=== PATIENT | male | born 1955 | race Caucasian/White ===

== ENCOUNTER 2019-03-19 08:04 | Emergency (ER) | payer MEDICARE ==
--- NOTE | 2019-03-19 08:16 | ED Physician Documentation ---
History of Present Illness - Stated complaint Stated Complaint: CHEST PAIN - Chief complaint Chief Complaint: Cardiac - History obtained from History obtained from: Patient - Additonal information Additional information: Patient is a previously healthy 63-year-old male presenting with left-sided chest discomfort that has been exacerbated since yesterday evening, but has been present over the past few days. Patient states that he has been experiencing a productive cough for some days which has caused mild chest discomfort. Patient denies fever or chills associated with his cough. Patient denies any radiation of his chest pain, as well as any lightheadedness, syncope, nausea, GERD symptoms, or vomiting. Patient denies abdominal pain, urinary changes, stool changes, as well as any leg swelling or recent travel. Patient does describe pain mostly with deep breathing. No anticoagulation, but patient took full dose aspirin prior to arrival. No other improving or worsening factors noted. Review of Systems Constitutional: denies: Fever Cardiac: reports: Chest pain / pressure Respiratory: reports: Dyspnea, Cough GI: denies: Abdominal Pain Musculoskeletal: denies: Extremity swelling PD PAST MEDICAL HISTORY - Past Medical History Past Medical History: No - Past Surgical History Ortho: Other (Knee) - Present Medications Home Medications: Ambulatory Orders Medication Instructions Recorded Confirmed No Known Home Medications 03/19/19 03/19/19 - Allergies Allergies/Adverse Reactions: Allergies Allergy/AdvReac Type Severity Reaction Status Date / Time codeine Allergy Emesis Verified 03/19/19 08:13 PD ED PE NORMAL - Vitals Vital signs reviewed: Yes - General General: Alert and oriented X 3, No acute distress, Well developed/nourished - HEENT HEENT: Atraumatic, Moist mucous membranes - Cardiac Cardiac: RRR, No murmur, Other (Not able to reproduce pain with palpation) - Abdomen Abdomen: Soft, Non tender, Non distended - Derm Derm: Normal color, Warm and dry, No rash - Extremities Extremities: No deformity, No tenderness to palpate, No edema, No calf tenderness / cord - Neuro Neuro: Alert and oriented X 3, No motor deficit, No sensory deficit - Psych Psych: Normal mood, Normal affect Results - Vitals Vitals: Vital Signs - 24 hr 03/19/19 03/19/19 03/19/19 08:08 08:13 09:13 Temperature 36.6 C Heart Rate 74 84 68 Respiratory 23 16 14 Rate Blood Pressure 154/91 H 154/91 H 145/91 H O2 Saturation 98 100 100 03/19/19 03/19/19 03/19/19 09:30 10:00 10:30 Temperature Heart Rate 74 66 69 Respiratory 18 19 18 Rate Blood Pressure 148/86 H 141/83 H 131/87 H O2 Saturation 97 97 99 03/19/19 10:53 Temperature Heart Rate 67 Respiratory 17 Rate Blood Pressure 133/86 H O2 Saturation 97 Oxygen O2 Source Room air - EKG (time done) 0804 Rate: Rate (enter#) (74) Rhythm: NSR QRS: LVH - Labs Labs: Laboratory Tests 03/19/19 03/19/19 03/19/19 08:14 08:14 08:14 WBC 10.3 RBC 4.79 Hgb 14.1 Hct 42.1 MCV 87.9 MCH 29.5 MCHC 33.5 RDW 13.4 Plt Count 258 MPV 7.2 L Neut # (Auto) 6.6 Lymph # (Auto) 2.0 [place] # (Auto) 1.5 H Eos # (Auto) 0.3 Baso # (Auto) 0.1 Absolute Nucleated RBC 0.00 Nucleated RBC % 0.0 PT INR APTT Sodium 138 Potassium 4.2 Chloride 102 Carbon Dioxide 25 Anion Gap 11.0 BUN 14 Creatinine 1.1 Estimated GFR (MDRD) 67 L Glucose 120 H Calcium 9.3 Total Bilirubin 0.9 AST 25 ALT 35 Alkaline Phosphatase 54 Troponin I < 0.04 B-Natriuretic Peptide Total Protein 7.9 Albumin 4.3 Globulin 3.6 Albumin/Globulin Ratio 1.2 Lipase 31 03/19/19 03/19/19 08:14 08:14 WBC RBC Hgb Hct MCV MCH MCHC RDW Plt Count MPV Neut # (Auto) Lymph # (Auto) [place] # (Auto) Eos # (Auto) Baso # (Auto) Absolute Nucleated RBC Nucleated RBC % PT 12.6 INR 1.1 APTT 28.2 Sodium Potassium Chloride Carbon Dioxide Anion Gap BUN Creatinine Estimated GFR (MDRD) Glucose Calcium Total Bilirubin AST ALT Alkaline Phosphatase Troponin I B-Natriuretic Peptide 15 Total Protein Albumin Globulin Albumin/Globulin Ratio Lipase PD MEDICAL DECISION MAKING - ED course Complexity details: reviewed results, re-evaluated patient, considered differential, d/w patient, d/w family ED course: Patient presenting with productive cough and chest discomfort over the past several days. Feel this could be related to pneumonia, bronchitis, viral illness, or other chest wall/musculoskeletal inflammation. Also considering ACS, myocardial infarction, unstable angina, AAA, dissection, or arrhythmia. EKG does not show evidence of acute changes.Also concerning for PE given pleuritic nature of discomfort and discussed possibly getting CT chest if needed. Patient to receive IV fluids and fentanyl as he already took full dose aspirin prior to arrival. Screening lab work and chest x-ray ordered.Screening lab work, including cardiac enzymes, returned unremarkable. Do not feel patient requires repeat troponin at this time given duration of symptoms. Unfortunately, delay in radiology read of chest x-ray, but upon my review, do not see obvious pneumonia or other complication. At this time, feel appropriate to obtain CT chest to further rule out PE.CT did not find evidence of PE or other complication. Upon reevaluation, patient noted improvement of symptoms and had lengthy discussion with patient and his wifeAbout results and rec ommendations including establishing primary care physician locally, cardiology referral, and need for further cardiac work-up including likely echocardiogram, stress test, or possible catheterization. Also discussed other supportive cares and strict return precautions. Both voiced understanding and are comfortable with discharge plan. Departure - Departure Disposition: 01 Home, Self Care Clinical Impression: Chest pain Qualifiers: Chest pain type: unspecified Qualified Code(s): R07.9 - Chest pain, unspecified Condition: Good Instructions: ED Chest Pain Atypical Unkn Cause Follow-Up: your,doctor [Other] - Within 3 Days Comments: Recommend starting daily baby aspirin 81 mg. Recommend avoidance of strenuous exercise until appropriate follow-up with primary care physician and possibly cardiology. May continue daily activities as needed. Recommend establishing primary care follow-up in the next 1 to 2 days for further evaluation. Will lik becky also require cardiology evaluation such as with echocardiogram, stress test, or cardiac catheterization. Please return to ED immediately if experience return of chest pain, other symptoms, or have other concerns.
[2019-03-19 08:26] LABS: BASOPHILS # (AUTO) 0.1 10^3/uL (0.0-0.1); BASOPHILS % (AUTO) 0.6 %; EOSINOPHILS # (AUTO) 0.3 10^3/uL (0.0-0.7); EOSINOPHILS % (AUTO) 2.6 %; HGB - HEMOGLOBIN 14.1 g/dL (14.0-18.0); LYMPHOCYTES % (AUTO) 19.2 %; MEAN CORPUSCULAR HEMOGLOBIN 29.5 pg (27.0-31.0); MEAN CORPUSCULAR HGB CONC 33.5 g/dL (32.0-36.0); MEAN CORPUSCULAR VOLUME 87.9 fL (80.0-94.0); MEAN PLATELET VOLUME 7.2 fL (7.4-11.4); MONOCYTES # (AUTO) 1.5 10^3/uL (0.0-1.0); MONOCYTES % (AUTO) 14.1 %; NEUTROPHILS # (AUTO) 6.6 10^3/uL (1.5-6.6); NEUTROPHILS % (AUTO) 63.5 %; PLT - PLATELET COUNT 258 10^3/uL (130-450); RED BLOOD COUNT 4.79 10^6/uL (4.70-6.10); RED CELL DISTRIBUTION WIDTH 13.4 % (12.0-15.0); WHITE BLOOD COUNT 10.3 x10^3/uL (4.8-10.8)
[2019-03-19] MEDS: fentaNYL 100 MCG/2 ML VIAL IVP STA (08:31)
[2019-03-19] MEDS: SODIUM CHLORIDE 0.9% 1,000 ML IV ONE (08:31)
[2019-03-19 08:38] LABS: ALBUMIN 4.3 g/dL (3.2-5.5); ALBUMIN/GLOBULIN RATIO 1.2 (1.0-2.2); BILIRUBIN,TOTAL 0.9 mg/dL (0.2-1.0); CALCIUM 9.3 mg/dL (8.5-10.3); CREATININE 1.1 mg/dL (0.6-1.2); TOTAL PROTEIN 7.9 g/dL (6.7-8.2)
[2019-03-19 08:39] LABS: INR 1.1 (0.8-1.2); PT - PROTHROMBIN TIME 12.6 secs (9.9-12.6)
[2019-03-19 08:47] LABS: PARTIAL THROMBOPLASTIN TIME 28.2 secs (24.9-33.3)
--- NOTE | 2019-03-19 09:32 | XRAY Report ---
Reason: cough Procedure Date: 03/19/2019 Accession Number: [id number] / [id number] Procedure: XR - Chest 2 View X-Ray CPT Code: 15924 FULL RESULT: EXAM: CHEST RADIOGRAPHY EXAM DATE: 03/19/2019 09:03 AM. CLINICAL HISTORY: Cough. Chest pain. COMPARISON: None. TECHNIQUE: 2 views. FINDINGS: Lungs/Pleura: No focal opacities evident. No interstitial abnormality. No pleural effusion. No pneumothorax. Normal volumes. Mediastinum: Heart and mediastinal contours are unremarkable. Other: None. IMPRESSION: Normal 2-view chest radiography. [facility]
[2019-03-19] MEDS ORDERED: IOVERSOL 320 100 ML VIAL IVP ONE (10:07)
--- NOTE | 2019-03-19 10:41 | CT Report ---
Reason: pleuritic chest pain, concern for PE Procedure Date: 03/19/2019 Accession Number: [id number] / [id number] Procedure: CT - ANGIO CHEST W/WO CPT Code: FULL RESULT: EXAM: CT ANGIOGRAM CHEST EXAM DATE: 03/19/2019 10:19 AM. CLINICAL HISTORY: Pleuritic chest pain, concern for a pulmonary embolus. COMPARISON: None. TECHNIQUE: Routine helical imaging was performed through the chest in the pulmonary arterial phase. IV Contrast: 54 mL Optiray 320. Reconstructions: Coronal 3-D MIP reconstructions.Sagittal and coronal. In accordance with CT protocol optimization, one or more of the following dose reduction techniques were utilized for this exam: automated exposure control, adjustment of mA and/or KV based on patient size, or use of iterative reconstructive technique. FINDINGS: Pulmonary Arteries: Diagnostic quality: Adequate through the proximal segmental arteries. No evidence for acute or chronic pulmonary emboli. RV/LV is within normal limits. There is no interventricular septal bowing. There is no reflux of contrast material in the IVC. Lungs/Pleura: Evaluation of the lungs is limited by motion artifact and technique tailored towards angiogram. In this setting, there is minimal dependent consolidation greater at the right lung base, and there is apparent pulmonary edema which is likely exacerbated by motion. There is no significant pleural effusion or pneumothorax. Mediastinum: Normal. No cardiac enlargement or adenopathy. Thoracic Aorta: Unremarkable. Upper Abdomen: Unremarkable. Other: None. IMPRESSION: No pulmonary embolism. Minimal dependent right lung base consolidation and apparent pulmonary edema, likely exacerbated by limited technique and motion artifact. [facility]
[2019-03-19 10:59] VITALS: BP 133/86
[2019-03-19] MEDS: IOVERSOL 320 100 ML VIAL IVP ONE (14:30)
== END 2019-03-19 11:11 | disposition home or self-care (01) ==
LOC: ED 08:04
DX: R07.1 Chest pain on breathing (principal); R05 Cough
CPT/HCPCS: 36415; 71046; 71275; 80053; 83690; 83880; 84484; 85025; 85610; 85730; 93005; 96360; 96361; 99284

== ENCOUNTER 2019-05-02 07:52 | Outpatient (CLI) | payer MEDICARE, OTHER | END 2019-05-02 07:53 | disposition home or self-care (01) | LOC: DI 07:52 | PROVIDERS: ATTEND Internal Medicine Cardiovascular Disease | DX: R07.9 Chest pain, unspecified (principal); I10 Essential (primary) hypertension; R06.00 Dyspnea, unspecified; I77.810 Thoracic aortic ectasia | CPT/HCPCS: 93306 ==